=== PATIENT | male | born 1935 | race Caucasian/White ===

== ENCOUNTER → 2016-05-20 | Outpatient (CLI) | payer OTHER ==
--- NOTE | 2016-05-20 16:54 | DI ---
LUMBAR SPINE SERIES, 05/20/2016 9:22 AM: Clinical History: Low back pain without sciatica. Previous Exam: 02/07/2016. Upright AP and lateral views are submitted. There is diffuse osteoporosis. The patient has undergone laminectomies from L1-L5 with posterior fusions performed between L1 and S1 and anterior fusions at L 4-5 and L5-S1. The L5-S1 anterior fusion was performed from the anterior approach. The bone graft cag e at L5-S1 protrudes anterior to the anterior margin of L5 and S1 by approximately 9 mm. The 2 thread ed screws inserted into the body of L5 to transfix the anterior plate now protrude less than half the distance of the AP dimension of the vertebral body. The lower 2 screws inserted into the body of S1 through the anterior plate are partially obscured by the lowest pedicle screws inserted posteriorly t hrough the S1 level. However these also appear to be penetrating only half the distance to the body o f S1. These findings related to the anterior fusion at L5-S1 are suspicious for migration of the ante rior plate anteriorly. There may not necessarily have been migration of the bone graft cage at L5-S1. There has been no change in the appearance of the L4-5 anterior fusion. The posterior fusions betwee n T12 and S1 likewise have not changed in appearance. Readin. Status post laminectomies from at least L1-L5 with posterior fusions performed with metallic stru ts transfixed with pedicle screws as previously described. The posterior fusions have not changed. 2. Status post anterior fusion at L4-5 which has remained stable. Status post anterior fusion at L5- S1 which was performed from the anterior approach. The lateral projections are slightly different bet ween the current study in the most recent exam, but there are still may have been partial migration o f the anterior plate at L5-S1. It is more difficult to assess the position of the screws in S1 becaus e of overlapping density from the S1 pedicle screws. The L5-S1 bone graft cage may not necessarily hong ve migrated anteriorly with the plate. 3. Severe osteoporosis.
== END ==
LOC: MOB RAD 09:25
PROVIDERS: ATTEND Neurological Surgery
DX: M54.5 Low back pain (principal); Z98.1 Arthrodesis status
CPT/HCPCS: 72100; 99213

== ENCOUNTER → 2016-06-07 | Outpatient (CLI) | payer OTHER ==
[2016-06-07 09:24] LABS: CALCIUM 8.6 mg/dL (8.7-10.7); POTASSIUM 4.1 meq/L (3.8-5.2)
--- NOTE | 2016-06-07 10:36 | DI ---
US RETROPERITONEAL LIMITED,06/07/2016 8:57 AM: Clinical History: Ureteral stricture. Previous Exam: June 05, 2015 CT abdomen pelvis performed May 20, 2007 Findings: Multiple grayscale and color Doppler sonographic images are obtained through the retroperitoneum. The right kidney measures 11.1 cm in length with some mild hydronephrosis and a prominent extrarenal pelvis unchanged from the prior exam. The left kidney also demonstrates some prominent fluid within the renal sinus with a complex cystic a abilio measuring 4.3 x 6.6 x 5.4 cm. This was proven to be a parapelvic cyst back in 2007. There is no left hydronephrosis. Impression: 1. Prominent right extrarenal pelvis and mild right hydronephrosis unchanged dating back to 2007. 2. Stable left parapelvic cyst.
== END ==
LOC: LAB 08:38
PROVIDERS: ATTEND Nurse Practitioner
DX: N13.5 Crossing vessel and stricture of ureter without hydronephrosis (principal); N40.1 Benign prostatic hyperplasia with lower urinary tract symptoms
CPT/HCPCS: 36415; 76775; 80048; 84153

== ENCOUNTER → 2016-08-21 | Outpatient (CLI) | payer OTHER ==
--- NOTE | 2016-08-21 12:27 | DI ---
AP PELVIS and RIGHT HIP, 08/21/2016 11:13 AM: Clinical History: Right hip pain. Previous Exam: None at this facility. There is no soft tissue abnormality. The bony structures of the pelvis are normal. The patient is sta tus post multilevel lumbar fusion. 2 views of the right hip are normal. There is osteoporosis. Readin. Normal right hip exam. 2. The AP pelvis view is unremarkable. 3. There is osteoporosis.
--- NOTE | 2016-08-21 20:56 | DI ---
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 Previous Exam: 05/20/2016. Upright AP and lateral and upright lateral flexion and extension views are submitted. The patient is status post laminectomies from L1-L5 with anterior fusions at L4-5 and L5-S1 and posterior fusions be tween T12 and S1. Posterior fusions are accomplished with metallic struts transfixed with pedicle scr ews bilaterally at T12, L1, L4, and S1, and unilaterally on the right side at L2 and on the left side at L3. The anterior fusion at L5-S1 is performed from the anterior approach and there may have been a previous fusion anteriorly at L5-S1 from the posterior approach. The L4-5 and L5-S1 fusions appear solid. Cement has been injected in the T12, L1, and S1 vertebral bodies to facilitate anchoring the p edicle screws. There is disc space narrowing at L1-2 through L3-4. L4-5 has a grade 1 spondylolisthes is. There is no instability with flexion and extension maneuvers. Both SI joints are normal. Readin. Status post fusions posteriorly between T12 and S1 and anterior fusions at L4-5 and L5-S1 with la minectomies between L1 and L5. 2. Flexion and extension maneuvers show no instability. There is a grade 1 spondylolisthesis at L4-5 with disc space narrowing at L1-2 through L3-4.
== END ==
LOC: MOB RAD 11:19
PROVIDERS: ATTEND Physician Assistant
DX: M47.26 Other spondylosis with radiculopathy, lumbar region (principal); M43.16 Spondylolisthesis, lumbar region; M25.551 Pain in right hip; Z98.1 Arthrodesis status
CPT/HCPCS: 72110; 73502

== ENCOUNTER → 2016-08-29 | Outpatient (CLI) | payer OTHER ==
--- NOTE | 2016-08-29 13:22 | DI ---
LUMBAR MYELOGRAM, 08/29/2016 10:00 AM: Clinical History: Thoracic spondylosis with radiculopathy. Previous Exam: None at this facility. Informed signed consent was obtained prior to the procedure. The patient was informed of benefits and risks, to include but not be limited, to allergies to medications (skin preparation agents, local an esthetic, and contrast agent), infection, and "spinal" headaches. The lower back was prepped with Betadine solution and alcohol. 1% lidocaine without epinephrine was u sed for intradermal and subcutaneous local anesthesia. Under fluoroscopic guidance, a 22 gauge spinal needle was then introduced into the spinal canal from the left paraspinal approach at the level of L 4. A single pass was performed and this revealed droplets of clear colorless CSF. 10 ml of Omipaque 300 was injected into the spinal canal with fluoroscopic monitoring. Spot films of the lumbar spine were obtained followed by a cross table lumbar spine view. The patient tolerated the procedure well and wa s transferred to the CT scan suite for the CT myelogram. Following the CT scan, the patient was observed in the department for approximately 1 hour. The patie nt was then discharged home and was instructed to minimize activity for the rest of the day. The irene ent was also instructed to push fluids for the remainder of the day and to sleep on an extra pillow w ith the head up if possible. The patient was advised to watch for signs of an infection (including bu t not limited to redness, swelling, fever) or an unusually severe headache. The patient was instructe d to either contact the x-ray department directly or to report to the Emergency Room immediately if p roblems arose. Findings: Images demonstrate posterior transpedicular carolyn fixation throughout the entirety of the mob ile lumbar spine and lower thoracic spine. There is some significant dextroscoliosis of the mid lumba r spine. Reading: Successful myelogram. CT pending.
--- NOTE | 2016-08-29 14:03 | DI ---
CT LUMBAR SPINE W/CONTRAST,08/29/2016 9:59 AM: Clinical History: Lumbosacral spondylosis with radiculopathy. Previous Exam: November 10, 2015 Findings: Multiple helically acquired CT images are obtained through the lumbar spine following the intrathecal administration of 10 mL of Omnipaque 300, and demonstrates diffuse degenerative changes. Postsurgica l changes are seen consistent with transpedicular carolyn fixation of the lumbar spine. There is also bon y fusion of the transverse processes from L2-L5. There is mild dextroscoliosis of the lumbar spine ce ntered at the L2/3 level. There has been removal of the transpedicular screw at the right L3 level an d both screws at the L5 level where there is an interbody fusion noted with incomplete bone formation at this time. The inner body fusion at L5/S1 is new from the prior exam. The paravertebral soft tissues are unremarkable except for postsurgical changes. There is a large cys t involving the left kidney which is incompletely evaluated on this exam. There is no hydronephrosis identified. Peripheral vascular calcifications are seen. Patient is status post bilateral laminectomies at multiple levels to include L5, L3, L1 and T12. Ther e is methylmethacrylate noted within the T12 and L1 vertebral bodies unchanged from the prior exam. Individual intervertebral disc spaces: T12/L1: No significant stenosis. L1/2: There is significant facet hypertrophy bilaterally in a small broad-based disc bulge contributi ng to mild central canal stenosis and mild bilateral neural foraminal narrowing. L2/3: There is a small broad-based disc bulge with some significant facet and ligamentum flavum hyper trophy contributing to moderate bilateral neuroforaminal narrowing. L3/4: There is a broad-based disc bulge with significant facet and ligamentum flavum hypertrophy cont ributing to mild central canal stenosis and mild bilateral neural foraminal narrowing. L4/5: There is grade 1 anterolisthesis of L4 on L5. Interbody fusion is noted at this level. There is some facet and ligamentum flavum hypertrophy. There is no significant central canal stenosis predomi nantly due to laminectomies. There is mild neuroforaminal narrowing. L5/S1: There is interbody fusion noted at this level and bilateral laminectomies. There is no signifi cant central canal stenosis. There is moderate bilateral neural foraminal narrowing due predominantly to the loss of intervertebral disc height and a broad-based disc bulge. Impression: Diffuse degenerative changes as above and new postoperative changes at L5/S1 without significant reddy ge from the prior exam.
--- NOTE | 2016-08-29 14:03 | DI ---
CT THORACIC SPINE W/CONTRAST,08/29/2016 9:59 AM: Clinical History: Thoracic spondylosis with radiculopathy. Previous Exam: November 17, 2015 Findings: Multiple helically acquired CT images are obtained through the thoracic spine. Alignment is anatomic. No fractures are seen. Endplate osteophytes are seen. The spinal cord descends normally with normal course, caliber and signal characteristics. A pacemaker is noted and peripheral vascular calcifications are seen. There is mild loss of intervertebral disc height at multiple levels. There is no significant neurofor aminal narrowing and no significant central canal stenosis. Impression: Mild degenerative changes of thoracic spine without significant stenosis.
== END ==
LOC: RAD 09:55
PROVIDERS: ATTEND Neurological Surgery
DX: M47.27 Other spondylosis with radiculopathy, lumbosacral region (principal); M47.24 Other spondylosis with radiculopathy, thoracic region; Z98.1 Arthrodesis status
CPT/HCPCS: 72129; 72132; 72255; 72265

== ENCOUNTER → 2016-09-02 | Outpatient (CLI) | payer OTHER ==
[2016-09-02 15:27] LABS: HEMOGLOBIN A1C 6.88 % (4.2-6.0)
== END ==
LOC: MOB LAB 11:11
DX: E11.9 Type 2 diabetes mellitus without complications (principal)
CPT/HCPCS: 36415; 83036

== ENCOUNTER 2016-09-05 08:22 | Day surgery (SDC) | payer OTHER ==
[~2016-09-05 08:22] MED LIST: BUPivacaine Inj 0.5% PF (5mg/ml) 10ml vial IV ONE
[2016-09-05 09:00] VITALS: TEMP 97.4
--- NOTE | 2016-09-05 09:41 | GEN.OPNOTE ---
Operative Note Procedure Date: 09/05/16 Preoperative Diagnosis: Chronic Low Back Pain Postoperative Diagnosis: same Procedure: Bilateral S1 Hardware Block
[2016-09-05 09:48] VITALS: RESP 16
== END 2016-09-05 09:50 | disposition home or self-care (01) ==
LOC: SDSC 08:22
PROVIDERS: ATTEND Pain Medicine Interventional Pain Medicine
DX: M54.5 Low back pain (principal)
CPT/HCPCS: 76000; J3490

== ENCOUNTER 2016-09-26 09:19 | Day surgery (SDC) | payer OTHER ==
[~2016-09-26 09:19] MED LIST changes: +BUPivacaine Inj 0.5% PF (5mg/ml) 10ml vial INTRATHEC ONE; -BUPivacaine Inj 0.5% PF (5mg/ml) 10ml vial IV ONE
[2016-09-26 10:55] VITALS: RESP 16; TEMP 97
--- NOTE | 2016-09-26 10:56 | GEN.OPNOTE ---
Facet Injection Procedure: Facet Injection with Local Anesthetic and Steriod Procedure Code - Neurosurgery: 11244 : L/S Spine Facet/Med, 1st Level: Bilateral S1 Screw Injection Preoperative Diagnosis: Lumbar Spondylosis Postoperative Diagnosis: same -: Consent: Rationale for procedure, nature of procedure, possible risks and benefits were discussed with the patient. Risks including allergic reaction to medications, known effects of steroid medications including transient elevations in blood sugar with aggravation of pre-existing diabetes and remote risk of aseptic necrosis of the hip. Infection or bleeding with potential risk of neurologic injury with weakness, paralysis or were all reviewed with the patient who wished to proceed. Anesthesia, sedation: No intravenous access or sedation was used. Physiologic monitoring of pulse and oxygen saturation was utilized. Procedure: The patient was placed prone on the operating room table, prepped with Chloroprep and sterilely draped. The skin was anesthetized with 1% Buffered Xylocaine. Under fluoroscopic control a 22-gauge needle was advanced to the right S1 screw. Following this 2 cc of .5% bupivicaine was injected. AP and lateral images of the final needle placement was obtained. The same was done on the left. The needle was removed and the patient returned to the post procedure recovery room where they were monitored for any side effects. Pain assessment: Preprocedure pain []/10, post procedure pain []/10. Discharge instructions: Patient was given a pain log to be filled out and returned. A delayed response to the steroids of 2-5 days was discussed.
== END 2016-09-26 11:40 | disposition home or self-care (01) ==
LOC: SDSC 09:19
PROVIDERS: ATTEND Pain Medicine Interventional Pain Medicine
DX: M47.816 Spondylosis without myelopathy or radiculopathy, lumbar region (principal); T84.84XA Pain due to internal orthopedic prosthetic devices, implants and grafts, initial encounter
CPT/HCPCS: 76000; J3490

== ENCOUNTER → 2016-12-18 | Outpatient (CLI) | payer OTHER ==
--- NOTE | 2016-12-18 10:54 | DI ---
LUMBAR SPINE SERIES, 12/18/2016 10:17 AM: Clinical History: Followup fusion of the lumbar spine. Previous Exam: 08/21/2016. 3 routine upright views are submitted. There is osteoporosis with a mild compression fracture at L3. The remaining vertebral bodies are of normal height. The patient is status post posterior fusion from T12-S1 facilitated with metallic struts transfixed with pedicle screws on the right side at T12-L2 a nd at L4 and S1. On the left side, there are pedicle screws at T12, L1, L3, L4, and S1. The patient i s status post anterior fusions at L4-5 and L5-S1. There is a buttress plate on the anterior aspect of the L5-S1 fusion. Laminectomies have been performed from L1-L5. Both SI joints are normal. Readin. Status post anterior fusions at L4-5 and L5-S1 and posterior fusions from T12-L1 through L5-S1. L aminectomies have been performed between L1 and L5. There has been no significant interval change. 2. Severe osteoporosis.
== END ==
LOC: RAD 09:52
PROVIDERS: ATTEND Neurological Surgery
DX: Z48.811 Encounter for surgical aftercare following surgery on the nervous system (principal); Z98.1 Arthrodesis status
CPT/HCPCS: 72100